=== PATIENT | female | born 2000 | race Caucasian/White ===

== ENCOUNTER 2022-03-17 19:04 | Emergency (ER) ==
[~2022-03-17] VITALS: Ht 167.6 cm; Wt 70.5 kg
[2022-03-17] MEDS ORDERED: LEXAPRO20 MG PO (19:19)
== END 2022-03-17 21:05 | disposition home or self-care (01) ==
LOC: COL.ER 19:04
DX: S51.011A Laceration without foreign body of right elbow, initial encounter (principal); W06.XXXA Fall from bed, initial encounter; W22.8XXA Striking against or struck by other objects, initial encounter

== ENCOUNTER 2022-05-25 02:50 | Emergency (ER) | payer BC ==
[~2022-05-25] VITALS: Ht 167.6 cm; Wt 72.7 kg
[~2022-05-25 02:50] MED LIST: LEXAPRO20 MG PO
[2022-05-25 02:57] VITALS: TEMP 97.6
[2022-05-25 03:27] LABS: COLLECTION METHOD CLEAN CATCH
[2022-05-25 03:38] LABS: AMORPHOUS CRYSTAL Present (NOT PRESENT); URINE APPEARANCE Hazy (CLEAR/HAZY); URINE BACTERIA None Seen /hpf (NONE SEEN); URINE BLOOD Negative (NEGATIVE); URINE COLOR Yellow (YELLOW); URINE GLUCOSE Negative (NEGATIVE); URINE KETONE Negative (NEGATIVE); URINE NITRATE Negative (NEGATIVE); URINE PROTEIN(semi-quant) Negative (NEGATIVE); URINE UROBILINOGEN 0.2 E.U/dL (0.2-1.0)
[2022-05-25 03:42] LABS: TRICYCLIC ANTIDEPRESS URINE NEGATIVE
[2022-05-25 04:04] LABS: BASO # 0.1 K/mm3 (0.0-0.2); BASO % 0.8 % (0.0-2.0); EOS # 0.3 K/mm3 (0.0-0.7); EOS % 3.1 % (0.0-4.0); GRAN # 5.2 K/mm3 (1.4-6.5); GRAN % 56.5 % (42.2-75.2); HEMOGLOBIN 13.6 g/dl (12.0-15.0); LYMPH # 2.7 K/mm3 (1.2-3.4); LYMPH % 29.7 % (20.0-51.0); MEAN CELL VOLUME 88 fl (80.0-95.0); MEAN CORPUSCULAR HEMOGLOBIN 30 pg (26-32); MEAN CORPUSCULAR HGB CONC 34 g/dl (33.0-37.0); MEAN PLATELET VOLUME 10.1 fl (7.4-10.4); MONO # 0.9 K/mm3 (0.1-0.6); MONO % 9.7 % (1.7-9.3); PLATELET COUNT 325 K/mm3 (130-400); RED BLOOD COUNT 4.53 M/mm3 (4.10-5.30); REDCELL DISTRIBUTION WIDTH-CV 12.1 % (11.5-14.5)
[2022-05-25 04:22] LABS: ALANINE AMINOTRANSFERASE 13 U/L (0-55); ALBUMIN 4.3 gm/dL (3.5-5.0); ALKALINE PHOSPHATASE 75 U/L (40-150); ANION GAP 8 mmol/L (7-16); AST,SGOT 15 U/L (5-34); BILIRUBIN,TOTAL 0.2 mg/dL (0.2-1.2); BLOOD UREA NITROGEN 10 mg/dL (8-21); CALCIUM 9.7 mg/dL (8.4-10.2); CARBON DIOXIDE 25 mmol/L (22-29); CHLORIDE 108 mmol/L (98-107); CREATININE, serum 0.75 mg/dL (0.57-1.11); GLUCOSE 95 mg/dL (70-99); POTASSIUM 3.8 mmol/L (3.5-4.5); SODIUM 141 mmol/L (136-145); TOTAL PROTEIN 7.5 gm/dL (6.2-8.1)
[2022-05-25 04:27] LABS: ACETAMINOPHEN < 1.0 ug/mL (10-30); ALCOHOL(ethanol),MEDICAL < 10 mg/dL (0-10); SALICYLATE < 5.0 mg/dL (15.0-30.0)
[2022-05-25 09:46] VITALS: BP 109/51; PULSE 70
== END 2022-05-25 10:00 | disposition home or self-care (01) ==
LOC: COL.ER 02:50
PROVIDERS: Emergency Medicine
DX: R45.851 Suicidal ideations (principal); F32.A Depression, unspecified

== ENCOUNTER 2022-11-19 06:47 | Day surgery (SDC) | payer BC ==
[~2022-11-19] VITALS: Ht 167.6 cm; Wt 74.2 kg
[~2022-11-19 06:47] MED LIST changes: +CIPRO 500MG TA500 MG PO; +FLEXERIL5 MG PO; +KEPPRA1000 MG PO; +MOTRIN 200200 MG/TAB PO; +ZOFRAN ODT4 MG PO
[2022-11-19 08:00] VITALS: BP 138/68; PULSE 68; TEMP 98
[2022-11-19] MEDS ORDERED: BACTRIM DS 8001 TAB PO (09:16)
[2022-11-19] MEDS ORDERED: NORCO 325 MG-51 TAB PO (09:17)
[2022-11-19] MEDS ORDERED: MOTRIN 800800 MG/TAB PO (09:17)
[2022-11-19 09:32] VITALS: BP 126/64; PULSE 72; TEMP 97.3
--- NOTE | 2022-11-19 09:32 | NUR ---
PATIENT RETURNED TO [facility] VIA CART. PATIENT DROWSY, BUT ORIENTED X3. DENIES PAIN AND NAUSEA. BREATHING REGULAR AND UNLABORED. BILATERAL LOWER EXTREMITIES WARM AND DRY, PULSES STRONG. RIGHT KNEE ELEVATED WITH OCTAVIO WRAP PRESENT, CLEAN, DRY AND INTACT. ICE PRESENT TO RIGHT KNEE. SEE CHART FOR VITAL SIGNS. NURSE HANDOFF COMPLETED IN ROOM. OLGA Felder RN TOOK OVER CARE PRIMARY DISCHARGE NURSE.
[2022-11-19 09:45] VITALS: BP 121/77; PULSE 64
[2022-11-19 10:00] VITALS: BP 118/69; PULSE 56
--- NOTE | 2022-11-19 10:36 | NUR ---
1000-VITAL SIGNS STABLE, PATIENT GIVEN PO INTAKE, TOLERATING WELL. DENIES PAIN AND NAUSEA AT THIS TIME. DISCHARGE INSTRUCTIONS REVIEWED WITH PT AND MOTHER AT BEDSIDE, QUESTIONS INVITED, PT VERBALIZED UNDERSTANDING. 1020-PATIENT DRESSED INDEPENDENTLY, DENIES PAIN WITH MOVEMENT OR DIZZINESS WITH STANDING 1025-IV CATHETER SITE DISCONTINUED, CATHETER TIP INTACT. PRESSURE HELD AND BANDAGE APPLIED. 1030-PATIENT DISCHARGED HOME VIA WHEELCHAIR TO [facility] WITH MOTHER, ALL BELONGINGS WITH PT AT TIME OF DISCHARGE.
== END 2022-11-19 10:30 | disposition home or self-care (01) ==
LOC: SDCO 06:47
DX: S83.011A Lateral subluxation of right patella, initial encounter (principal); S83.241A Other tear of medial meniscus, current injury, right knee, initial encounter; M25.561 Pain in right knee
CPT/HCPCS: J0171; J0690; J1100; J2405; J2704; J3010; J7120

== ENCOUNTER 2023-07-25 19:03 | Emergency (ER) | payer SELFPAY ==
[~2023-07-25] VITALS: Ht 167.6 cm; Wt 79.5 kg
[~2023-07-25 19:03] MED LIST changes: +BACTRIM DS 8001 TAB PO; +MOTRIN 800800 MG/TAB PO; +NORCO 325 MG-51 TAB PO
[2023-07-25 19:15] VITALS: TEMP 98.1
[2023-07-25 21:09] VITALS: BP 128/71; PULSE 63
== END 2023-07-25 21:08 | disposition home or self-care (01) ==
LOC: COL.ER 19:03
DX: S46.911A Strain of unspecified muscle, fascia and tendon at shoulder and upper arm level, right arm, initial encounter (principal); X50.0XXA Overexertion from strenuous movement or load, initial encounter; Y92.59 Other trade areas as the place of occurrence of the external cause; Y99.0 Civilian activity done for income or pay